=== PATIENT | male | born 1995 | race Caucasian/White ===

== ENCOUNTER 2022-11-14 18:00 | Emergency (ER) | payer BC ==
[2022-11-14] MEDS ORDERED: Adacel Vial IM ONE ×2 (18:35→18:38)
[2022-11-14] MEDS ORDERED: XYLOCAINE 1% HCL 20 ML MDV IJ ONE (18:36)
[2022-11-14] MEDS ORDERED: XYLOCAINE 1% HCL 20 ML MDV ONE (18:38)
[2022-11-14 18:50] VITALS: BP 150/83; PULSE 71; O2SAT 96
[2022-11-14] MEDS ORDERED: BACIGUENT PACKET TP ONE (19:18)
[2022-11-14] MEDS ORDERED: BACIGUENT PACKET ONE (19:19)
--- NOTE | 2022-11-14 19:34 | ERPHSYRPT ---
- History of Present Illness Time Seen by Provider: 11/14/22 19:00 Source: patient Exam Limitations: no limitations Patient Subjective Stated Complaint: pt states approx one hour ago he was tearing down a wooden shed, they were standing inside the shed and the floor gave out and the roof came down on them and he thinks a rusted nail is what cut him. Triage Nursing Assessment: pt ambulated to room 6 independently with slow steady gait after standing on scale for weight acquisition. pt is alert and oriented times three, able to move all extremities, speaks in complete sentences, and is with resp even and unlabored. pt denies numbness or tingling. Physician History: 26-year-old male presents emergency room with a laceration to his right anterior chest wall. Patient was helping his friend tear down a shed in the roof collapsed hitting him in the chest. Wound is fairly superficial but it did take a decent size area of skin that is still attached. No active bleeding on arrival. Patient denies any chest pain or shortness of breath. His last tetanus is unknown. Timing/Duration: today Quality: painful Severity: moderate Location: other (right anterior chest) Possible Causes: other (roof fell on patient) Associated Symptoms: No difficulty breathing Allergies/Adverse Reactions: No Known Drug Allergies Allergy (Unverified 11/14/22 18:35) Hx Tetanus, Diphtheria Vaccination/Date Given: No Hx Influenza Vaccination/Date Given: No Hx Pneumococcal Vaccination/Date Given: No Immunizations Up to Date: No Travel Risk - International Travel Have you traveled outside of the country in past 3 weeks: No - Coronavirus Screening Are you exhibiting any of the following symptoms?: No Close contact with a COVID-19 positive Pt in past 14-21 Days: No - Vaccine Status Have you recieved a Covid-19 vaccination: No - Review of Systems Constitutional: No Symptoms Respiratory: No Symptoms Cardiac: No Symptoms Skin: Other (laceration of right anterior chest) Neurological: No Symptoms - Past Medical History Pertinent Past Medical History: Yes Neurological History: No Pertinent History ENT History: No Pertinent History Cardiac History: No Pertinent History Respiratory History: Asthma Endocrine Medical History: No Pertinent History Musculoskeletal History: No Pertinent History GI Medical History: No Pertinent History History: No Pertinent History Psycho-Social History: Depression Male Reproductive Disorders: No Pertinent History - Past Surgical History Past Surgical History: No Neuro Surgical History: No Pertinent History Cardiac: No Pertinent History Respiratory: No Pertinent History Gastrointestinal: No Pertinent History Genitourinary: No Pertinent History Musculoskeletal: No Pertinent History Male Surgical History: No Pertinent History - Social History Smoking Status: Never smoker Exposure to second hand smoke: Yes Drug Use: none Patient Lives Alone: No - Nursing Vital Signs Nursing Vital Signs: Initial Vital Signs Temperature 97.3 F 11/14/22 18:36 Pulse Rate 71 11/14/22 18:36 Respiratory Rate 16 11/14/22 18:36 Blood Pressure 150/83 11/14/22 18:36 O2 Sat by Pulse Oximetry 96 11/14/22 18:36 Pain Scale Pain Intensity 8 - Physical Exam General Appearance: no apparent distress Respiratory Exam: airway intact, No respiratory distress Cardiovascular Exam: regular rate/rhythm, capillary refill <2 sec Skin Exam: laceration (7cm in length, no active bleeding) SpO2 Interpretation: normal SpO2: 96 O2 Delivery: Room Air Procedures - Laceration/Wound Repair Right Anterior Lateral Chest Time of Procedure: 19:10 Wound Location: Right (chest wall) Wound Length (cm): 7 Wound's Depth, Shape: superficial, flap Wound Explored: contaminated Irrigated: Yes Hibiclens Prep: Yes Anesthesia: 1% Lidocaine Volume Anesthetic (ccs): 15 Wound Debrided: moderate Wound Repaired With: sutures Suture Size/Type: 4-0, nylon Number of Sutures: 3 Layer Closure?: No Sterile Dressing Applied?: Yes Splint Applied?: No Sling Applied?: No - Course Nursing assessment & vital signs reviewed: Yes Ordered Tests: Active Orders 24 hr Category Date Time Status Wound Care STAT Care 11/14/22 19:27 Active Medication Summary Discontinued Medications Generic Name Dose Route Start Last Admin Trade Name Lauro PRN Reason Stop Dose Admin Bacitracin Zinc 0.9 each 11/14/22 19:18 11/14/22 19:20 Bacitracin Packet 1 Each Pckt TP 11/14/22 19:19 0.9 each STAT ONE Administration Bacitracin Zinc Confirm 11/14/22 19:19 Bacitracin Packet 1 Each Pckt Administered 11/14/22 19:20 Dose 1 each .ROUTE .STK-MED ONE Diphtheria/Tetanus/Acell Pertussis 0.5 ml 11/14/22 18:35 11/14/22 18:39 Tdap --Diph,Pertuss(Acell),Tet Vac/Pf 0.5 Ml Vial IM 11/14/22 18:36 0.5 ml .ONCE ONE Administration Diphtheria/Tetanus/Acell Pertussis Confirm 11/14/22 18:38 Tdap --Diph,Pertuss(Acell),Tet Vac/Pf 0.5 Ml Vial Administered 11/14/22 18:39 Dose 0.5 ml IM .STK-MED ONE Lidocaine HCl 10 ml 11/14/22 18:36 11/14/22 18:40 Lidocaine Hcl 1% 20 Ml Mdv 20 Ml Ml IJ 11/14/22 18:37 10 ml STAT ONE Administration Lidocaine HCl Confirm 11/14/22 18:38 Lidocaine Hcl 1% 20 Ml Mdv 20 Ml Ml Administered 11/14/22 18:39 Dose 10 ml .ROUTE .STK-MED ONE - Progress Progress: unchanged Progress Note: laceration repaired w/ x3 4-0 Nylon. Sterile dressing applied. F/U in 7 days w/ pcp for removal. Counseled pt/family regarding: need for follow-up Medical Desision Making - Risk of complications The pt has a mod risk of morbidity or mortality based on: Need for minor surgical intervention in patient with know risk factors - Departure Departure Disposition: Home Clinical Impression: Laceration Condition: Good Critical Care Time: No Referrals: LYNDSEY WOODALL MD [Primary Care Provider] - Follow up/PCP as directed Instructions: Laceration Repair With Stitches (DC) Additional Instructions: You have been evaluated in the Emergency Department today for a laceration to your right anterior chest wall. Your laceration was repaired in the ED with sutures. Please keep the area surrounding the laceration clean and dry. Please keep the area out of the sunlight for the next 6 months to help prevent scarring. You should have the sutures removed in 7-10 days by your primary care physician, or at your local urgent care or ER. If you develop redness or swelling at the site of your laceration please come back to the ER for a wound check. We recommend you take 600mg ibuprofen every 6 hours or tylenol 650mg every 6 ho urs as needed for pain. If needed, you can alternate these medications so that you take one medication every 3 hours. For instance, at noon take ibuprofen, then at 3pm take tylenol, then at 6pm take ibuprofen. Please follow up with your primary care physician in 7-10 days for suture removal. You can also return to the ER or another urgent care facility for this service. Return to the Emergency Department if you experience discharge from your laceration, redness around your laceration, warmth around your laceration, fever, vomiting, numbness, tingling, or any other concerning symptoms. Thank you for choosing us for your care. Prescriptions: Cephalexin Mh 500 mg [Keflex 500 mg] 500 mg PO TID 7 Days #21 cap
== END 2022-11-14 19:51 | disposition home or self-care (01) ==
LOC: ED 18:00
DX: S21.111A Laceration without foreign body of right front wall of thorax without penetration into thoracic cavity, initial encounter (principal); W20.1XXA Struck by object due to collapse of building, initial encounter; Z28.310 Unvaccinated for COVID-19; Z23 Encounter for immunization
CPT/HCPCS: 12002; 90471; 90715; 96372; 99283; A9270-GY

== ENCOUNTER 2022-11-16 12:58 | Emergency (ER) | payer BC ==
[2022-11-16 13:12] VITALS: BP 140/69; PULSE 78; O2SAT 98
[2022-11-16] MEDS ORDERED: TORAdol 30 mg Injection IM ONE (13:18)
--- NOTE | 2022-11-16 13:24 | ERPHSYRPT ---
- History of Present Illness Source: patient Exam Limitations: other (Poor historian) Patient Subjective Stated Complaint: Pt states "I was in here on wednesday and Dr. Lozano put some stitches in me and they have been hurting ever since." Triage Nursing Assessment: Pt presented alert and oriented X 3, skin pwd. PT ambulates with an upright steady gait, able to speak in clear full sententences pt smells strongly of body odor, pt has intact sutures noted to right lateral chest, no redness, no swelling, not warm to touch, no drainage. Physician History: 26 yo WM w R thoracic laceration repaired by Dr. Lozano 2 days ago present w pain. Pt denies fever/discharge/increasing erythema. He is currently taking Keflex. Laceration hurts more w movement. Timing/Duration: day(s) (2 days) Quality: painful Severity: mild Location: torso Allergies/Adverse Reactions: No Known Drug Allergies Allergy (Verified 11/16/22 13:11) Hx Tetanus, Diphtheria Vaccination/Date Given: No Hx Influenza Vaccination/Date Given: No Hx Pneumococcal Vaccination/Date Given: No Immunizations Up to Date: Yes Travel Risk - International Travel Have you traveled outside of the country in past 3 weeks: No - Coronavirus Screening Are you exhibiting any of the following symptoms?: No Close contact with a COVID-19 positive Pt in past 14-21 Days: No - Vaccine Status Have you recieved a Covid-19 vaccination: No - Review of Systems Constitutional: No Symptoms Eyes: No Symptoms Ears, Nose, & Throat: No Symptoms Respiratory: No Symptoms Cardiac: No Symptoms Abdominal/Gastrointestinal: No Symptoms Genitourinary Symptoms: No Symptoms Musculoskeletal: No Symptoms Neurological: No Symptoms Psychological: No Symptoms Endocrine: No Symptoms Hematologic/Lymphatic: No Symptoms Immunological/Allergic: No Symptoms - Past Medical History Pertinent Past Medical History: Yes Neurological History: No Pertinent History ENT History: No Pertinent History Cardiac History: No Pertinent History Respiratory History: Asthma Endocrine Medical History: No Pertinent History Musculoskeletal History: No Pertinent History GI Medical History: No Pertinent History History: No Pertinent History Psycho-Social History: Depression Male Reproductive Disorders: No Pertinent History - Past Surgical History Past Surgical History: No Neuro Surgical History: No Pertinent History Cardiac: No Pertinent History Respiratory: No Pertinent History Gastrointestinal: No Pertinent History Genitourinary: No Pertinent History Musculoskeletal: No Pertinent History Male Surgical History: No Pertinent History - Social History Smoking Status: Never smoker Exposure to second hand smoke: Yes Drug Use: none Patient Lives Alone: No - Nursing Vital Signs Nursing Vital Signs: Initial Vital Signs Temperature 97.8 F 11/16/22 13:07 Pulse Rate 78 11/16/22 13:07 Respiratory Rate 20 11/16/22 13:07 Blood Pressure 140/69 11/16/22 13:07 O2 Sat by Pulse Oximetry 98 11/16/22 13:07 Pain Scale Pain Intensity 8 Hypertensive - Physical Exam General Appearance: no apparent distress Eye Exam: PERRL/EOMI, eyes nml inspection Ears, Nose, Throat Exam: normal ENT inspection, TMs normal, pharynx normal, moist mucous membranes Neck Exam: normal inspection, non-tender, supple, full range of motion, No meningismus, No mass, No Brudzinski, No Kernig's Respiratory Exam: normal breath sounds, lungs clear, other (R superior thoracic laceration clean/dry/intact/no drainage) Cardiovascular Exam: regular rate/rhythm, normal heart sounds, normal peripheral pulses, capillary refill <2 sec, No murmur Gastrointestinal/Abdomen Exam: soft, normal bowel sounds, No tenderness Back Exam: normal inspection, normal range of motion Extremity Exam: normal inspection, normal range of motion Neurologic Exam: alert, oriented x 3, cooperative, 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, normal mood/affect, nml cerebellar function, nml station & gait, sensation nml Skin Exam: normal color, warm, dry Lymphatic Exam: No adenopathy SpO2 Interpretation: normal SpO2: 98 O2 Delivery: Room Air - Course Nursing assessment & vital signs reviewed: Yes Ordered Tests: Medication Summary Discontinued Medications Generic Name Dose Route Start Last Admin Trade Name Gurpreetq PRN Reason Stop Dose Admin Ketorolac Tromethamine 60 mg 11/16/22 13:18 11/16/22 13:36 Ketorolac Tromethamine 30 Mg/Ml Inj IM 11/16/22 13:19 60 mg STAT ONE Administration Ketorolac Tromethamine Confirm 11/16/22 13:35 Ketorolac Tromethamine 30 Mg/Ml Inj Administered 11/16/22 13:36 Dose 60 mg .ROUTE .STK-MED ONE - Progress Progress Note: 11/16/22 13:22 Nursing note and vital signs reviewed No food or housing insecurities noted Laceration repair clean/dry/intact wo evidence of infection or dehiscence 60mg IM toradol 11/16/22 17:49 Counseled pt/family regarding: diagnosis, need for follow-up Medical Desision Making - Risk of complications The pt has a mod risk of morbidity or mortality based on: Need for prescription drug management - Departure Departure Disposition: Home Clinical Impression: Encounter for wound re-check Condition: Stable Critical Care Time: No Referrals: LYNDSEY WOODALL MD [Primary Care Provider] - Follow up/PCP as directed Instructions: Laceration Repair With Stitches ED Additional Instructions: Wash laceration twice a day with soap/water Watch for signs of infection-increasing redness/any pus/increasing pain/temper ature greater than 100.5
[2022-11-16] MEDS ORDERED: TORAdol 30 mg Injection ONE (13:35)
== END 2022-11-16 13:45 | disposition home or self-care (01) ==
LOC: ED 12:58
DX: Z48.00 Encounter for change or removal of nonsurgical wound dressing (principal)
CPT/HCPCS: 96372; 99282; J1885